=== PATIENT | female | born 1980 | race Caucasian/White ===

== ENCOUNTER 2017-06-05 00:05 | Inpatient (IN) | payer MEDICAID, OTHER ==
[~2017-06-05] VITALS: Ht 167.6 cm; Wt 90.7 kg
[~2017-06-05 00:05] MED LIST: AZU500 PO; DULO60CA41 PO; LEVO150T8 PO; LOP600 PO; LOSA50TA20 PO; LYR50 PO; NAPR-690 PO; PRED-428 PO; QUET50TA13 PO; SIMV40TA5 PO; ZOLP10TA2 PO
[2017-06-05 00:10] VITALS: BP_SYST 154
[2017-06-05] MEDS ORDERED: LORazepam 2 MG/ML VIAL IVP ONE (00:45)
[2017-06-05] MEDS ORDERED: LORazepam 2 MG/ML VIAL (FOR ER USE) ONE (01:19)
[2017-06-05 02:00] LABS: BASOPHILS # (AUTO) 0.2 K/uL (0.0-0.2); BASOPHILS % (AUTO) 1.4 % (0.0-2.0); HEMATOCRIT 44.5 % (36-48); HEMOGLOBIN 14.5 g/dL (12.0-16.0); LYMPHOCYTES # (AUTO) 1.1 K/uL (1.0-5.5); LYMPHOCYTES % (AUTO) 9.5 % (20.5-51.5); MEAN CORPUSCULAR HEMOGLOBIN 28 pg (27-31); MEAN CORPUSCULAR HGB CONC 33 % (32-36); MEAN CORPUSCULAR VOLUME 86 fL (79.0-98.0); MONOCYTES # (AUTO) 0.4 K/uL (0.0-1.0); MONOCYTES % (AUTO) 3.6 % (1.7-9.3); NEUTROPHILS # (AUTO) 9.7 K/uL (1.8-7.7); NEUTROPHILS % (AUTO) 85.5 % (40.0-70.0); PLATELET COUNT (AUTO) 287 K/uL (130-430); RED BLOOD CELL COUNT(AUTO) 5.17 MIL/uL (4.2-6.2); RED CELL DISTRIBUTION WIDTH 12.3 % (9.0-15.0); WHITE BLOOD COUNT (AUTO) 11.4 K/uL (4.8-10.8)
[2017-06-05 02:08] LABS: INR 1.1 (0.8-1.2); PROTHROMBIN TIME 11.5 SECS (9.5-12.5)
[2017-06-05 02:21] LABS: BILIRUBIN,URINE NEGATIVE (NEGATIVE); CLARITY/URINE CLEAR (CLEAR); COLOR,URINE YELLOW (YELLOW); GLUCOSE,URINE 3+ (NEGATIVE); KETONES,URINE 3+ (NEGATIVE); LEUKOCYTE ESTERASE ,URINE NEGATIVE (NEGATIVE); NITRITE, URINE NEGATIVE (NEGATIVE); PROTEIN URINE 2+ (NEGATIVE); UROBILINOGEN,URINE 0.2 (0.2-1.0)
[2017-06-05 02:23] LABS: BLOOD, URINE TRACE (NEGATIVE)
[2017-06-05 02:25] LABS: ANION GAP 19 (5-15); CALCIUM 9.5 mg/dL (8.4-11.0); CHLORIDE 94 mmol/L (98-107); CREATININE 0.92 mg/dL (0.55-1.30); POTASSIUM 3.4 mmol/L (3.5-5.1); SODIUM SERUM 133 mmol/L (136-145); UREA NITROGEN, BLOOD 11 mg/dL (8-21)
[2017-06-05 02:28] LABS: GFR AFRICAN AMERICAN 88 mL/min (>90); GLUCOSE 472 mg/dL (70-99)
[2017-06-05 02:35] LABS: ALANINE AMINOTRANSFERASE 13 U/L (12-78); ALBUMIN 4.3 g/dL (3.4-4.8); ASPARTATE AMINOTRANSFERASE 12 U/L (10-37); FREE T4 (FREE THYROXINE) 0.9 ng/dL (0.6-1.6); TOTAL BILIRUBIN 0.8 mg/dL (0.0-1.0); TOTAL PROTEIN, SERUM 8.8 g/dL (6.4-8.3)
[2017-06-05 02:36] LABS: BARBITURATE, URINE NEGATIVE (NEG <=200); BENZODIAZEPINE, URINE NEGATIVE (NEG <=150); CANNABINOID, URINE POSITIVE (NEG <=50); COCAINE, URINE NEGATIVE (NEG <=150); METHAMPHETAMINES SCREEN,URINE NEGATIVE (NEG <=500); OPIATE, URINE NEGATIVE (NEG <=100); PHENCYCLIDINE SCREEN,URINE NEGATIVE (NEG <=25); UR TRICYCLIC ANTIDEPRESSANTS NEGATIVE (NEG <=300); URINE AMPHETAMINE NEGATIVE (NEG <=500); URINE METHADONE NEGATIVE (NEG <=200); URINE OXYCODONE SCREEN NEGATIVE (NEG <=100); URINE PROPOXYPHENE SCREEN NEGATIVE (NEG <=300)
[2017-06-05 02:41] LABS: ALCOHOL, BLOOD < 3 mg/dL (<10)
[2017-06-05 02:45] LABS: BACTERIA,URINE FEW /HPF (None Seen); RBC,URINE 0-3 /HPF (0-3); WBC,URINE 0-3 /HPF (0-3)
[2017-06-05] MEDS ORDERED: MORPHINE 4 MG/ML INJ. SYRINGE IVP ONE (02:45)
[2017-06-05] MEDS ORDERED: POTASSIUM CHLORIDE 20 MEQ/PKT PACKET PO ONE (02:45)
[2017-06-05] MEDS ORDERED: DIPHENHYDRAMINE INJ 50 MG/ML VIAL IVP ONE (02:45)
[2017-06-05] MEDS ORDERED: NS 500 ML IV ONE (02:45)
[2017-06-05 02:46] LABS: MUCUS,URINE 1+ /LPF (None Seen); YEAST,URINE Few /HPF (None Seen)
[2017-06-05] MEDS ORDERED: ONDANSETRON HCL 4 MG/2 ML VIAL IVP ONE (03:30)
[2017-06-05] MEDS ORDERED: SERT100T PO (03:57)
[2017-06-05] MEDS ORDERED: OXYC-133 PO (03:57)
[2017-06-05] MEDS ORDERED: [UNRECOGNIZED DRUG - CODE] PO (03:57)
[2017-06-05] MEDS ORDERED: DIAZ10TA PO (03:57)
[2017-06-05] MEDS ORDERED: INSULIN REGULAR, HUMAN 10 UNITS/0.1 ML INJ IVP ONE (04:45)
[2017-06-05] MEDS ORDERED: LORazepam 2 MG/ML VIAL IVP PRN (04:45)
[2017-06-05] MEDS ORDERED: ACETAMINOPHEN 325 MG TABLET PO PRN (04:45)
[2017-06-05 05:09] VITALS: BP_SYST 155
[2017-06-05] MEDS: METOCLOPRAMIDE HCL 10 MG/2 ML VIAL IVP SCH ×4 (06:00→23:22)
[2017-06-05] MEDS: NACL 0.9% 1,000 ML IV SCH ×3 (06:00→20:35)
[2017-06-05] MEDS: MORPHINE 2 MG/ML INJ. SYRINGE IVP PRN ×2 (06:01→20:31)
[2017-06-05] MEDS ORDERED: INSULIN REGULAR, HUMAN 100 UNITS/ML, 10 ML VIAL IV ONE (06:30)
[2017-06-05] MEDS: MORPHINE 4 MG/ML INJ. SYRINGE IVP PRN ×4 (09:47→23:22)
[2017-06-05] MEDS: ONDANSETRON HCL 4 MG/2 ML VIAL IVP PRN ×4 (09:48→23:21)
[2017-06-05] MEDS: FAMOTIDINE PF 20 MG/2 ML VIAL IVP SCH ×2 (09:48→20:35)
[2017-06-05] MEDS: INSULIN REGULAR, HUMAN 100 UNITS/ML, 10 ML VIAL (novoLIN R) SUBCUT PRN ×5 (09:50→23:26)
[2017-06-05 12:00] VITALS: BP_SYST 140
[2017-06-05] MEDS ORDERED: POTASSIUM CHLORIDE 40 MEQ, LIDOCAINE JECT 2% PF 100 MG 50 MG in NS 250 ML IV ONE (12:30)
[2017-06-05] MEDS ORDERED: DIATR MEGLU/DIATRIZ SOD 30 ML SOLUTION PO ONE (12:54)
[2017-06-05 13:04] LABS: CALCIUM 9.3 mg/dL (8.4-11.0); CREATININE 0.9 mg/dL (0.55-1.30); POTASSIUM 3.6 mmol/L (3.5-5.1)
[2017-06-05 13:12] LABS: ALBUMIN 4.3 g/dL (3.4-4.8); TOTAL BILIRUBIN 0.7 mg/dL (0.0-1.0); TOTAL PROTEIN, SERUM 8.3 g/dL (6.4-8.3)
[2017-06-05] MEDS ORDERED: OXYCODONE/ACETAMINOPHEN *10*mg/325 mg TABLET PO PRN (13:15)
[2017-06-05] MEDS ORDERED: PREDNISONE 5 MG PO SCH (13:15)
[2017-06-05] MEDS ORDERED: LOSARTAN POTASSIUM 50 MG TABLET (COZAAR) PO ONE (13:15)
[2017-06-05 16:00] VITALS: BP_SYST 136
[2017-06-05] MEDS ORDERED: IOHEXOL 100 ML IV ONE (17:06)
[2017-06-05] MEDS: ZOLPIDEM TARTRATE 5 MG TABLET PO SCH (20:34)
[2017-06-05] MEDS: GEMFIBROZIL 600 MG TABLET (LOPID) PO SCH (20:34)
[2017-06-05] MEDS: QUEtiapine FUMARATE 100 MG TABLET PO SCH (20:34)
[2017-06-05] MEDS: sulfASALAZINE 500 MG TABLET (AZULFIDINE) PO SCH (20:35)
[2017-06-05] MEDS: PREGABALIN 25 MG CAPSULE (LYRICA) PO SCH (20:35)
[2017-06-05 21:35] VITALS: BP_SYST 159
[2017-06-06 00:47] VITALS: BP_SYST 114
[2017-06-06 01:14] VITALS: BP_SYST 159
[2017-06-06] MEDS: MORPHINE 2 MG/ML INJ. SYRINGE IVP PRN ×2 (02:33→21:21)
[2017-06-06] MEDS: INSULIN REGULAR, HUMAN 100 UNITS/ML, 10 ML VIAL (novoLIN R) SUBCUT PRN ×5 (02:38→21:48)
[2017-06-06] MEDS: ONDANSETRON HCL 4 MG/2 ML VIAL IVP PRN ×5 (04:53→21:40)
[2017-06-06] MEDS: METOCLOPRAMIDE HCL 10 MG/2 ML VIAL IVP SCH ×3 (06:41→17:52)
[2017-06-06] MEDS: LEVOTHYROXINE SODIUM 0.15 MG TABLET PO SCH (06:41)
[2017-06-06] MEDS: MORPHINE 4 MG/ML INJ. SYRINGE IVP PRN ×3 (06:43→17:54)
[2017-06-06] MEDS: NACL 0.9% 1,000 ML IV SCH (06:44)
[2017-06-06 07:15] LABS: BASOPHILS # (AUTO) 0.1 K/uL (0.0-0.2); BASOPHILS % (AUTO) 0.6 % (0.0-2.0); EOSINOPHILS % (AUTO) 0.4 % (0.0-4.0); HEMATOCRIT 40.5 % (36-48); HEMOGLOBIN 13.5 g/dL (12.0-16.0); LYMPHOCYTES # (AUTO) 2.4 K/uL (1.0-5.5); LYMPHOCYTES % (AUTO) 26.7 % (20.5-51.5); MEAN CORPUSCULAR HEMOGLOBIN 29 pg (27-31); MEAN CORPUSCULAR HGB CONC 33 % (32-36); MEAN CORPUSCULAR VOLUME 86 fL (79.0-98.0); MONOCYTES # (AUTO) 0.5 K/uL (0.0-1.0); MONOCYTES % (AUTO) 5.1 % (1.7-9.3); NEUTROPHILS # (AUTO) 5.9 K/uL (1.8-7.7); NEUTROPHILS % (AUTO) 67.2 % (40.0-70.0); PLATELET COUNT (AUTO) 267 K/uL (130-430); RED BLOOD CELL COUNT(AUTO) 4.71 MIL/uL (4.2-6.2); RED CELL DISTRIBUTION WIDTH 12.2 % (9.0-15.0); WHITE BLOOD COUNT (AUTO) 8.9 K/uL (4.8-10.8)
[2017-06-06 07:31] LABS: ALBUMIN 3.7 g/dL (3.4-4.8); CALCIUM 9.1 mg/dL (8.4-11.0); CREATININE 0.68 mg/dL (0.55-1.30); POTASSIUM 3.4 mmol/L (3.5-5.1); TOTAL BILIRUBIN 0.7 mg/dL (0.0-1.0); TOTAL PROTEIN, SERUM 7.5 g/dL (6.4-8.3)
[2017-06-06 08:22] VITALS: BP_SYST 143
[2017-06-06] MEDS: PREGABALIN 25 MG CAPSULE (LYRICA) PO SCH ×3 (09:00→22:10)
[2017-06-06] MEDS: GEMFIBROZIL 600 MG TABLET (LOPID) PO SCH ×3 (09:00→22:11)
[2017-06-06] MEDS: SIMVASTATIN 40 MG TABLET PO SCH ×2 (09:00→09:08)
[2017-06-06] MEDS: sulfASALAZINE 500 MG TABLET (AZULFIDINE) PO SCH ×3 (09:00→22:09)
[2017-06-06] MEDS: QUEtiapine FUMARATE 25 MG TABLET PO SCH (09:08)
[2017-06-06] MEDS: LOSARTAN POTASSIUM 50 MG TABLET (COZAAR) PO SCH (09:09)
[2017-06-06] MEDS: SERTRALINE HCL 50 MG TABLET PO SCH (09:10)
[2017-06-06] MEDS: FAMOTIDINE PF 20 MG/2 ML VIAL IVP SCH ×2 (09:10→23:29)
[2017-06-06] MEDS ORDERED: POTASSIUM CHLORIDE 20 MEQ TAB.PRT.SR PO ONE (09:30)
[2017-06-06 14:27] VITALS: BP_SYST 143
[2017-06-06] MEDS ORDERED: POTASSIUM CHLORIDE 40 MEQ, LIDOCAINE JECT 2% PF 100 MG 50 MG in NS 250 ML IV ONE (16:45)
[2017-06-06 17:13] VITALS: BP_SYST 143
[2017-06-06] MEDS: POTASSIUM CHLORIDE 20 MEQ TAB.PRT.SR PO SCH (21:00)
[2017-06-06 21:50] VITALS: BP_SYST 154
[2017-06-06] MEDS: ZOLPIDEM TARTRATE 5 MG TABLET PO SCH (22:09)
[2017-06-06] MEDS: QUEtiapine FUMARATE 100 MG TABLET PO SCH (22:11)
[2017-06-07] LABS: CALCIUM 8.4 mg/dL (8.4-11.0); CREATININE 0.6 mg/dL (0.55-1.30); POTASSIUM 3.3 mmol/L (3.5-5.1)
[2017-06-07] MEDS ORDERED: KCL 20 mEq in 100 mL (PREMIX) 100 ML IV ONE ×2 (00:24→00:33)
[2017-06-07] MEDS ORDERED: LIDOCAINE JECT 2% PF 100 MG/5ML SYRINGE ONE (00:24)
[2017-06-07 00:39] VITALS: BP_SYST 139
[2017-06-07] MEDS: MORPHINE 4 MG/ML INJ. SYRINGE IVP PRN ×6 (01:48→22:48)
[2017-06-07] MEDS: METOCLOPRAMIDE HCL 10 MG/2 ML VIAL IVP SCH ×4 (01:48→17:19)
[2017-06-07] MEDS: ONDANSETRON HCL 4 MG/2 ML VIAL IVP PRN ×4 (05:53→22:29)
[2017-06-07] MEDS: LEVOTHYROXINE SODIUM 0.15 MG TABLET PO SCH (06:12)
[2017-06-07 07:58] LABS: BASOPHILS # (AUTO) 0.1 K/uL (0.0-0.2); BASOPHILS % (AUTO) 0.7 % (0.0-2.0); EOSINOPHILS # (AUTO) 0.1 K/uL (0.0-0.4); EOSINOPHILS % (AUTO) 0.9 % (0.0-4.0); HEMOGLOBIN 14.2 g/dL (12.0-16.0); LYMPHOCYTES # (AUTO) 3.2 K/uL (1.0-5.5); LYMPHOCYTES % (AUTO) 38.8 % (20.5-51.5); MEAN CORPUSCULAR HEMOGLOBIN 29 pg (27-31); MEAN CORPUSCULAR HGB CONC 33 % (32-36); MEAN CORPUSCULAR VOLUME 87 fL (79.0-98.0); MONOCYTES # (AUTO) 0.4 K/uL (0.0-1.0); MONOCYTES % (AUTO) 5.2 % (1.7-9.3); NEUTROPHILS # (AUTO) 4.4 K/uL (1.8-7.7); NEUTROPHILS % (AUTO) 54.4 % (40.0-70.0); PLATELET COUNT (AUTO) 258 K/uL (130-430); RED BLOOD CELL COUNT(AUTO) 4.96 MIL/uL (4.2-6.2); RED CELL DISTRIBUTION WIDTH 12.3 % (9.0-15.0); WHITE BLOOD COUNT (AUTO) 8.2 K/uL (4.8-10.8)
[2017-06-07 08:00] VITALS: BP_SYST 141
[2017-06-07 08:12] LABS: CALCIUM 8.8 mg/dL (8.4-11.0); CREATININE 0.64 mg/dL (0.55-1.30); POTASSIUM 3.5 mmol/L (3.5-5.1)
[2017-06-07] MEDS: QUEtiapine FUMARATE 25 MG TABLET PO SCH (09:00)
[2017-06-07] MEDS: PREGABALIN 25 MG CAPSULE (LYRICA) PO SCH ×2 (09:00→22:33)
[2017-06-07] MEDS: POTASSIUM CHLORIDE 20 MEQ TAB.PRT.SR PO SCH ×2 (09:00→22:33)
[2017-06-07] MEDS: FAMOTIDINE PF 20 MG/2 ML VIAL IVP SCH ×2 (09:00→22:32)
[2017-06-07] MEDS: GEMFIBROZIL 600 MG TABLET (LOPID) PO SCH ×2 (09:01→22:33)
[2017-06-07] MEDS: SIMVASTATIN 40 MG TABLET PO SCH (09:01)
[2017-06-07] MEDS: LOSARTAN POTASSIUM 50 MG TABLET (COZAAR) PO SCH (09:02)
[2017-06-07] MEDS: SERTRALINE HCL 50 MG TABLET PO SCH (09:02)
[2017-06-07] MEDS: sulfASALAZINE 500 MG TABLET (AZULFIDINE) PO SCH ×2 (10:18→22:32)
[2017-06-07 11:32] VITALS: BP_SYST 143
[2017-06-07] MEDS: INSULIN REGULAR, HUMAN 100 UNITS/ML, 10 ML VIAL (novoLIN R) SUBCUT PRN (11:47)
[2017-06-07 15:39] VITALS: BP_SYST 125
[2017-06-07 20:10] VITALS: BP_SYST 138
[2017-06-07] MEDS: QUEtiapine FUMARATE 100 MG TABLET PO SCH (22:33)
[2017-06-07] MEDS: ZOLPIDEM TARTRATE 5 MG TABLET PO SCH (22:38)
[2017-06-07 23:54] VITALS: BP_SYST 143
[2017-06-08] MEDS: METOCLOPRAMIDE HCL 10 MG/2 ML VIAL IVP SCH ×4 (00:19→17:45)
[2017-06-08 04:18] VITALS: BP_SYST 102
[2017-06-08] MEDS: MORPHINE 4 MG/ML INJ. SYRINGE IVP PRN ×4 (05:42→20:54)
[2017-06-08] MEDS: ONDANSETRON HCL 4 MG/2 ML VIAL IVP PRN ×4 (05:51→20:51)
[2017-06-08] MEDS ORDERED: MEPERIDINE HCL/PF 100 MG/ML AMP ONE (06:31)
[2017-06-08] MEDS ORDERED: MIDAZOLAM HCL 5 MG/5 ML VIAL ONE ×2 (06:32)
[2017-06-08] MEDS ORDERED: SIMETHICONE 40 MG/0.6 ML ML ONE (06:34)
[2017-06-08 06:35] LABS: CALCIUM 8.7 mg/dL (8.4-11.0); CREATININE 0.68 mg/dL (0.55-1.30); POTASSIUM 3.8 mmol/L (3.5-5.1)
[2017-06-08] MEDS: LEVOTHYROXINE SODIUM 0.15 MG TABLET PO SCH (07:00)
[2017-06-08] MEDS ORDERED: MEPERIDINE HCL/PF 100 MG/ML AMP IV ONE (07:46)
[2017-06-08] MEDS ORDERED: MIDAZOLAM HCL 5 MG/5 ML VIAL IVP ONE ×3 (07:48→07:52)
[2017-06-08] MEDS: SIMVASTATIN 40 MG TABLET PO SCH (09:00)
[2017-06-08] MEDS: QUEtiapine FUMARATE 25 MG TABLET PO SCH (09:00)
[2017-06-08] MEDS: GEMFIBROZIL 600 MG TABLET (LOPID) PO SCH ×2 (09:00→22:20)
[2017-06-08] MEDS: POTASSIUM CHLORIDE 20 MEQ TAB.PRT.SR PO SCH ×2 (09:00→22:20)
[2017-06-08] MEDS: SERTRALINE HCL 50 MG TABLET PO SCH (09:00)
[2017-06-08] MEDS: FAMOTIDINE PF 20 MG/2 ML VIAL IVP SCH ×2 (09:00→22:28)
[2017-06-08] MEDS: sulfASALAZINE 500 MG TABLET (AZULFIDINE) PO SCH ×2 (09:00→22:20)
[2017-06-08] MEDS: PREGABALIN 25 MG CAPSULE (LYRICA) PO SCH ×2 (09:00→22:20)
[2017-06-08] MEDS: LOSARTAN POTASSIUM 50 MG TABLET (COZAAR) PO SCH (09:00)
[2017-06-08 09:38] VITALS: BP_SYST 95
[2017-06-08 12:47] VITALS: BP_SYST 107
[2017-06-08 16:26] VITALS: BP_SYST 108
[2017-06-08] MEDS ORDERED: BISACODYL 5 MG TABLET.DR (DULCOLAX) PO ONE (17:00)
[2017-06-08] MEDS ORDERED: GOLYTELY / COLYTE SOLUTION 4 LITERS PO ONE ×2 (18:00→18:15)
[2017-06-08] MEDS ORDERED: MAGNESIUM CITRATE 300 ML ORAL SOLUTION PO ONE (19:00)
[2017-06-08 20:46] VITALS: BP_SYST 111
[2017-06-08] MEDS: QUEtiapine FUMARATE 100 MG TABLET PO SCH (22:20)
[2017-06-08 23:50] VITALS: BP_SYST 111
[2017-06-09 00:29] VITALS: BP_SYST 123
[2017-06-09] MEDS: METOCLOPRAMIDE HCL 10 MG/2 ML VIAL IVP SCH ×4 (00:54→16:58)
[2017-06-09] MEDS: MORPHINE 4 MG/ML INJ. SYRINGE IVP PRN ×5 (00:56→22:55)
[2017-06-09] MEDS: ZOLPIDEM TARTRATE 5 MG TABLET PO SCH ×2 (01:22→23:03)
[2017-06-09 04:08] VITALS: BP_SYST 104
[2017-06-09] MEDS: MORPHINE 2 MG/ML INJ. SYRINGE IVP PRN (06:29)
[2017-06-09 06:47] LABS: BASOPHILS # (AUTO) 0.1 K/uL (0.0-0.2); BASOPHILS % (AUTO) 0.8 % (0.0-2.0); EOSINOPHILS # (AUTO) 0.1 K/uL (0.0-0.4); EOSINOPHILS % (AUTO) 1.1 % (0.0-4.0); HEMOGLOBIN 13.9 g/dL (12.0-16.0); LYMPHOCYTES % (AUTO) 46.6 % (20.5-51.5); MEAN CORPUSCULAR HEMOGLOBIN 29 pg (27-31); MEAN CORPUSCULAR HGB CONC 33 % (32-36); MEAN CORPUSCULAR VOLUME 88 fL (79.0-98.0); MONOCYTES # (AUTO) 0.4 K/uL (0.0-1.0); MONOCYTES % (AUTO) 5.8 % (1.7-9.3); NEUTROPHILS # (AUTO) 3.1 K/uL (1.8-7.7); NEUTROPHILS % (AUTO) 45.7 % (40.0-70.0); PLATELET COUNT (AUTO) 198 K/uL (130-430); RED BLOOD CELL COUNT(AUTO) 4.81 MIL/uL (4.2-6.2); RED CELL DISTRIBUTION WIDTH 12.3 % (9.0-15.0); WHITE BLOOD COUNT (AUTO) 6.7 K/uL (4.8-10.8)
[2017-06-09] MEDS ORDERED: MAGNESIUM CITRATE 300 ML ORAL SOLUTION PO ONE ×2 (07:00→19:00)
[2017-06-09] MEDS ORDERED: LACTULOSE 20 GM/30 ML UDC PO ONE (07:00)
[2017-06-09] MEDS: LEVOTHYROXINE SODIUM 0.15 MG TABLET PO SCH ×2 (07:00→10:20)
[2017-06-09 07:30] LABS: CALCIUM 8.8 mg/dL (8.4-11.0); CREATININE 0.71 mg/dL (0.55-1.30); POTASSIUM 3.9 mmol/L (3.5-5.1)
[2017-06-09] MEDS: FAMOTIDINE PF 20 MG/2 ML VIAL IVP SCH ×2 (10:12→21:57)
[2017-06-09] MEDS: ONDANSETRON HCL 4 MG/2 ML VIAL IVP PRN ×3 (10:12→18:22)
[2017-06-09] MEDS: sulfASALAZINE 500 MG TABLET (AZULFIDINE) PO SCH ×2 (10:18→21:58)
[2017-06-09] MEDS: SERTRALINE HCL 50 MG TABLET PO SCH (10:19)
[2017-06-09] MEDS: SIMVASTATIN 40 MG TABLET PO SCH (10:20)
[2017-06-09] MEDS: QUEtiapine FUMARATE 25 MG TABLET PO SCH (10:21)
[2017-06-09] MEDS: PREGABALIN 25 MG CAPSULE (LYRICA) PO SCH ×2 (10:21→21:57)
[2017-06-09] MEDS: LOSARTAN POTASSIUM 50 MG TABLET (COZAAR) PO SCH (10:22)
[2017-06-09] MEDS: POTASSIUM CHLORIDE 20 MEQ TAB.PRT.SR PO SCH ×2 (10:23→21:58)
[2017-06-09] MEDS: GEMFIBROZIL 600 MG TABLET (LOPID) PO SCH ×2 (10:24→21:58)
[2017-06-09 11:30] VITALS: BP_SYST 121
[2017-06-09] MEDS: LR 1,000 ML IV SCH (14:38)
[2017-06-09 15:55] VITALS: BP_SYST 106
[2017-06-09] MEDS: LACTULOSE 20 GM/30 ML UDC PO SCH ×3 (16:57→22:53)
[2017-06-09] MEDS ORDERED: BISACODYL 5 MG TABLET.DR (DULCOLAX) PO ONE (17:00)
[2017-06-09] MEDS: INSULIN REGULAR, HUMAN 100 UNITS/ML, 10 ML VIAL (novoLIN R) SUBCUT PRN ×2 (17:05→22:46)
[2017-06-09] MEDS ORDERED: GOLYTELY / COLYTE SOLUTION 4 LITERS NG ONE (18:00)
[2017-06-09 20:00] VITALS: BP_SYST 109
[2017-06-09] MEDS: QUEtiapine FUMARATE 100 MG TABLET PO SCH (21:58)
[2017-06-10 00:04] VITALS: BP_SYST 106
[2017-06-10] MEDS: METOCLOPRAMIDE HCL 10 MG/2 ML VIAL IVP SCH ×3 (00:20→11:49)
[2017-06-10] MEDS: LR 1,000 ML IV SCH ×2 (00:20→08:45)
[2017-06-10] MEDS: MORPHINE 4 MG/ML INJ. SYRINGE IVP PRN ×3 (06:44→15:33)
[2017-06-10 07:35] LABS: BASOPHILS # (AUTO) 0.1 K/uL (0.0-0.2); EOSINOPHILS # (AUTO) 0.3 K/uL (0.0-0.4); EOSINOPHILS % (AUTO) 3.6 % (0.0-4.0); HEMATOCRIT 42.5 % (36-48); HEMOGLOBIN 14.3 g/dL (12.0-16.0); LYMPHOCYTES # (AUTO) 2.9 K/uL (1.0-5.5); LYMPHOCYTES % (AUTO) 37.8 % (20.5-51.5); MEAN CORPUSCULAR HEMOGLOBIN 29 pg (27-31); MEAN CORPUSCULAR HGB CONC 34 % (32-36); MEAN CORPUSCULAR VOLUME 87 fL (79.0-98.0); MONOCYTES # (AUTO) 0.4 K/uL (0.0-1.0); MONOCYTES % (AUTO) 4.6 % (1.7-9.3); RED BLOOD CELL COUNT(AUTO) 4.89 MIL/uL (4.2-6.2); RED CELL DISTRIBUTION WIDTH 12.2 % (9.0-15.0); WHITE BLOOD COUNT (AUTO) 7.7 K/uL (4.8-10.8)
[2017-06-10] MEDS ORDERED: MIDAZOLAM HCL 5 MG/5 ML VIAL ONE (07:47)
[2017-06-10] MEDS ORDERED: SIMETHICONE 40 MG/0.6 ML ML ONE (07:48)
[2017-06-10] MEDS ORDERED: DIPHENHYDRAMINE INJ 50 MG/ML VIAL ONE (07:48)
[2017-06-10 08:00] VITALS: BP_SYST 103
[2017-06-10 08:05] LABS: POTASSIUM 4.1 mmol/L (3.5-5.1)
[2017-06-10 08:06] LABS: ALBUMIN 3.9 g/dL (3.4-4.8); CALCIUM 9.7 mg/dL (8.4-11.0); CREATININE 0.96 mg/dL (0.55-1.30); TOTAL BILIRUBIN 0.9 mg/dL (0.0-1.0); TOTAL PROTEIN, SERUM 7.7 g/dL (6.4-8.3)
[2017-06-10] MEDS: MEPERIDINE HCL/PF 100 MG/ML AMP ONE ×6 (08:06→09:10)
[2017-06-10] MEDS: MIDAZOLAM HCL 5 MG/5 ML VIAL ONE ×8 (08:06→09:15)
[2017-06-10] MEDS: LOSARTAN POTASSIUM 50 MG TABLET (COZAAR) PO SCH (09:00)
[2017-06-10] MEDS: PREGABALIN 25 MG CAPSULE (LYRICA) PO SCH (10:56)
[2017-06-10] MEDS: sulfASALAZINE 500 MG TABLET (AZULFIDINE) PO SCH (10:57)
[2017-06-10] MEDS: SERTRALINE HCL 50 MG TABLET PO SCH (10:57)
[2017-06-10] MEDS: FAMOTIDINE PF 20 MG/2 ML VIAL IVP SCH (10:58)
[2017-06-10] MEDS: SIMVASTATIN 40 MG TABLET PO SCH (10:58)
[2017-06-10] MEDS: GEMFIBROZIL 600 MG TABLET (LOPID) PO SCH (10:58)
[2017-06-10] MEDS: POTASSIUM CHLORIDE 20 MEQ TAB.PRT.SR PO SCH (10:58)
[2017-06-10] MEDS: QUEtiapine FUMARATE 25 MG TABLET PO SCH (10:58)
[2017-06-10 11:09] LABS: PLATELET COUNT (AUTO) 292 K/uL (130-430)
[2017-06-10] MEDS: ONDANSETRON HCL 4 MG/2 ML VIAL IVP PRN (11:09)
[2017-06-10 12:48] VITALS: BP_SYST 103
[2017-06-10] MEDS ORDERED: PRO40 PO (13:32)
[2017-06-10] MEDS ORDERED: ONDA4TAB22 PO (13:33)
[2017-06-10 15:27] VITALS: BP_SYST 119
[2017-06-10 16:13] VITALS: BP_SYST 119
== END 2017-06-10 17:05 | disposition home or self-care (01) | DRG 241 ==
LOC: SED 00:05 → SMU 04:35 → STU 05:00 → SMU 05:21 → STU 08:12 → SMU 06-06 10:11
PROVIDERS: ADMIT Internal Medicine; ATTEND Internal Medicine
PROC: 0DB98ZX Excision of Duodenum, Via Natural or Artificial Opening Endoscopic, Diagnostic (ICD-10-PCS; 2017-06-08)
PROC: 0DB78ZX Excision of Stomach, Pylorus, Via Natural or Artificial Opening Endoscopic, Diagnostic (ICD-10-PCS; principal; 2017-06-08 07:50)
PROC: 0DJD8ZZ Inspection of Lower Intestinal Tract, Via Natural or Artificial Opening Endoscopic (ICD-10-PCS; 2017-06-10)
DX: K29.70 Gastritis, unspecified, without bleeding (principal); E13.10 Other specified diabetes mellitus with ketoacidosis without coma; A08.39 Other viral enteritis; E87.8 Other disorders of electrolyte and fluid balance, not elsewhere classified; E87.1 Hypo-osmolality and hyponatremia; F25.9 Schizoaffective disorder, unspecified; E11.65 Type 2 diabetes mellitus with hyperglycemia; I10 Essential (primary) hypertension; E87.6 Hypokalemia; K21.0 Gastro-esophageal reflux disease with esophagitis; D72.829 Elevated white blood cell count, unspecified; E03.9 Hypothyroidism, unspecified; E66.9 Obesity, unspecified; E78.5 Hyperlipidemia, unspecified; F41.1 Generalized anxiety disorder; F43.10 Post-traumatic stress disorder, unspecified; K64.8 Other hemorrhoids; M19.90 Unspecified osteoarthritis, unspecified site; M45.9 Ankylosing spondylitis of unspecified sites in spine; M79.7 Fibromyalgia; F32.9 Major depressive disorder, single episode, unspecified; Z68.32 Body mass index [BMI] 32.0-32.9, adult; K59.09 Other constipation
CPT/HCPCS: 36415; 43239; 45378; 71010; 74000-TC; 78264-TC; 80048; 80053; 80061; 80307; 81000-TC; 82140-TC; 82962; 83605; 83690-TC; 83735-TC; 83880; 84439; 84484; 84703; 85025; 85610-TC; 87040-TC; 87081; 88305; 88312; 88313; 93005; 96361; 96374; 96375; 99285; A9541; G0482; J1200; J1815; J2060; J2175; J2250; J2270; J2405; J2765; J3480; J3490; J7030; J7050; J7120; Q9964; Q9967

== ENCOUNTER 2018-06-04 17:03 | Emergency (ER) | payer MEDICAID ==
[~2018-06-04] VITALS: Ht 165.1 cm; Wt 88.5 kg
[~2018-06-04 17:03] MED LIST changes: -DULO60CA41 PO; -LOSA50TA20 PO; -NAPR-690 PO; +OXYC-133 PO; +QUET50TA PO; -QUET50TA13 PO; +SERT100T PO; +[UNRECOGNIZED DRUG - CODE] PO
[2018-06-04 17:05] VITALS: BP_SYST 144
[2018-06-04 18:27] LABS: HEMOGLOBIN 12.6 g/dL (12.0-16.0)
[2018-06-04] MEDS ORDERED: cefTRIAXone 1 GM IVPB PREMIX 50 ML IV ONE (18:30)
[2018-06-04 18:33] LABS: ANION GAP 11 (5-15); CALCIUM 9.5 mg/dL (8.4-11.0); CHLORIDE 104 mmol/L (98-107); CREATININE 0.85 mg/dL (0.55-1.30); GFR AFRICAN AMERICAN 96 mL/min (>90); GLUCOSE 92 mg/dL (70-99); POTASSIUM 3.9 mmol/L (3.5-5.1); SODIUM SERUM 140 mmol/L (136-145); UREA NITROGEN, BLOOD 19 mg/dL (8-21)
[2018-06-04 18:34] LABS: BASOPHILS # (AUTO) 0.1 K/uL (0.0-0.2); BASOPHILS % (AUTO) 0.5 % (0.0-2.0); EOSINOPHILS # (AUTO) 0.1 K/uL (0.0-0.4); HEMATOCRIT 36.8 % (36-48); LYMPHOCYTES # (AUTO) 3.3 K/uL (1.0-5.5); LYMPHOCYTES % (AUTO) 31.2 % (20.5-51.5); MEAN CORPUSCULAR HEMOGLOBIN 30 pg (27-31); MEAN CORPUSCULAR HGB CONC 34 % (32-36); MEAN CORPUSCULAR VOLUME 88 fL (79.0-98.0); MONOCYTES # (AUTO) 0.5 K/uL (0.0-1.0); MONOCYTES % (AUTO) 4.9 % (1.7-9.3); NEUTROPHILS # (AUTO) 6.5 K/uL (1.8-7.7); NEUTROPHILS % (AUTO) 62.4 % (40.0-70.0); PLATELET COUNT (AUTO) 264 K/uL (130-430); RED BLOOD CELL COUNT(AUTO) 4.17 MIL/uL (4.2-6.2); RED CELL DISTRIBUTION WIDTH 12.6 % (9.0-15.0); WHITE BLOOD COUNT (AUTO) 10.5 K/uL (4.8-10.8)
[2018-06-04 18:35] LABS: INR 0.9 (0.8-1.2); PROTHROMBIN TIME 9.4 SECS (9.5-12.5)
[2018-06-04 18:39] LABS: ALANINE AMINOTRANSFERASE 16 U/L (12-78); ALBUMIN 3.4 g/dL (3.4-4.8); ASPARTATE AMINOTRANSFERASE 16 U/L (10-37); TOTAL BILIRUBIN 0.2 mg/dL (0.0-1.0)
[2018-06-04 19:28] LABS: ACETONE, SERUM NEGATIVE (NEGATIVE)
[2018-06-04 19:53] VITALS: BP_SYST 139
== END 2018-06-04 19:50 | disposition home or self-care (01) ==
LOC: SED 17:03
DX: E11.621 Type 2 diabetes mellitus with foot ulcer (principal); L89.319 Pressure ulcer of right buttock, unspecified stage; E78.5 Hyperlipidemia, unspecified; E03.9 Hypothyroidism, unspecified; F41.9 Anxiety disorder, unspecified; F32.9 Major depressive disorder, single episode, unspecified; M79.7 Fibromyalgia; Z79.899 Other long term (current) drug therapy
CPT/HCPCS: 36415; 71045; 73630; 80053; 82009; 82550; 83880; 84484; 85025; 85610; 85730; 93005; 96365; 99285; J0696